=== PATIENT | female | born 1990 | race Caucasian/White ===

== ENCOUNTER 2018-10-12 20:35 | Inpatient (IN) | payer OTHER | END 2018-10-15 14:30 | disposition home or self-care (01) | LOC: JLDR 20:35 → J3W 10-13 21:15 ==

== ENCOUNTER 2022-09-01 21:01 | Emergency (ER) | payer BC, OTHER ==
[2022-09-01 21:09] VITALS: BP 108/68; PULSE 62; RESP 18; TEMP 98.4; BMI 26.2
[2022-09-01 22:20] LABS: EPI CELLS 13 /uL (0-25.1); HYALINE CASTS 0 /uL (0-3.1); PH,URINE 6.5 (5.0-8.0); URINE APPEARANCE CLEAR; URINE BACTERIA 361 /uL (0-1359); URINE BILIRUBIN NEGATIVE (NEGATIVE); URINE COLOR YELLOW; URINE GLUCOSE (UA) NEGATIVE (NEGATIVE); URINE KETONE NEGATIVE (NEGATIVE); URINE LEUK ESTERASE TRACE (NEGATIVE); URINE NITRITE NEGATIVE (NEGATIVE); URINE PROTEIN NEGATIVE (NEGATIVE); URINE RBC 4 /uL (0-23.9); URINE UROBILINOGEN 0.2 mg/dL (0.2-1.0); URINE WBC 8 /uL (0-25.8)
[2022-09-01 22:21] LABS: HCG,QUALITATIVE URINE Negative
[2022-09-01] MEDS ORDERED: FAMOTIDINE 20 MG TABLET PO ONE (22:23)
[2022-09-01] MEDS ORDERED: MAG HYDROX/AL HYDROX/SIMETH 30 ML UNIT-DOSE CUP PO ONE (22:23)
[2022-09-01] MEDS ORDERED: MAG HYDROX/AL HYDROX/SIMETH 30 ML UNIT-DOSE CUP ONE (23:32)
[2022-09-01] MEDS ORDERED: FAMOTIDINE 20 MG TABLET ONE (23:32)
== END 2022-09-02 00:14 | disposition left against medical advice (07) ==
LOC: JER 21:01
DX: R10.13 Epigastric pain (principal); K29.00 Acute gastritis without bleeding
CPT/HCPCS: 81003; 84703; 99283-25